=== PATIENT | male | born 1965 | race Caucasian/White ===

== ENCOUNTER 2017-10-06 06:25 | Day surgery (SDC) | payer OTHER ==
[~2017-10-06] VITALS: Ht 177.8 cm; Wt 70.3 kg
--- NOTE | 2017-10-06 08:13 | NUR ---
10/06/17 0813 Talita Navarrete 0807 PT ARRIVED IN PACU SLEEPY WITH NO C/O'S. ABD SOFT. 0812 OXYGEN DECREASED TO 1L NC WITH SATS 100%.
--- NOTE | 2017-10-07 08:49 | OR ---
[facility] [address], [place] [address] Signed DATE OF OPERATION: 10/06/2017 SURGEON: Shannan Yun MD PREOPERATIVE DIAGNOSES: 1. Colon screening. 2. Family history of colon cancer (aunt). POSTOPERATIVE DIAGNOSIS: Normal colon to cecum. PROCEDURE: Total colonoscopy to cecum. ANESTHESIA: Intravenous sedation, fentanyl 200 mcg and Versed 6 mg. INDICATION: This 52-year-old white man is a patient of Dr. Barreto. He sees also Dr. Pillai, a doctor of chiropractic. He is referred for screening colonoscopy. He understands the risks of bleeding, infection, and perforation. He does have a family history of colon cancer in an aunt who was , though not from colon cancer. He understands the risks of bleeding, infection, and perforation related to colonoscopy and wished to proceed. FINDINGS: The prep was excellent. Complete colonoscopy was undertaken to the cecum. There was no sign of polyp or diverticular formation, colitis, or cancer. DESCRIPTION OF PROCEDURE: The patient was brought to the operative room, placed in the lateral decubitus position and given intravenous sedation to the point of slurred speech and nystagmus. Digital rectal examination was normal. The Olympus video colonoscope was passed in the rectum and manipulated throughout the colon. Passage beyond the hepatic flexure required abdominal wall stabilization, but was accomplished and ultimately the scope passed to the cecum. He had an excellent prep. Irrigation was undertaken as needed at the cecum and the scope was carefully withdrawn from that point. Examination throughout showed no sign of polyp, diverticular formation, colitis, or cancer. Retroflex view was normal as well. The scope was Electronically Signed By: SHANNAN YUN MD 10/07/17 0849 PATIENT NAME: ARELI HUFFMAN OPERATIVE REPORT DATE OF : 67 REPORT #: [id number] PHYSICIAN: SHANNAN YUN MD PCP: SHAQ PILLAI DC REPORT IS CONFIDENTIAL AND NOT TO BE RELEASED WITHOUT AUTHORIZATION [facility] [address] [facility] [place], [place] [address] Signed removed. The patient was taken to the recovery room in good condition. CONCLUDING DIAGNOSIS: Normal colon to cecum. PLAN: Recommend repeat colonoscopy in 10 years or sooner if clinically indicated by bleeding, diarrhea or constipation problems. MD KELLEY Mcpherson/MODL /[id number] cc: KEEGAN Nunn MD Copies: SHAQ PILLAI DC, MALCOLM MD ~ Electronically Signed By: SHANNAN YUN MD 10/07/17 0849 PATIENT NAME: ARELI HUFFMAN OPERATIVE REPORT DATE OF : 67 REPORT #: [id number] PHYSICIAN: SHANNAN YUN MD PCP: SHAQ PILLAI DC REPORT IS CONFIDENTIAL AND NOT TO BE RELEASED WITHOUT AUTHORIZATION
== END 2017-10-06 08:40 | disposition home or self-care (01) ==
LOC: DS 06:25 → OPS 06:25 → DS 06:45 → OPS 06:45
PROVIDERS: Surgery
PROC: 0DJD8ZZ Inspection of Lower Intestinal Tract, Via Natural or Artificial Opening Endoscopic (ICD-10-PCS; principal; 2017-10-06 06:45)
DX: Z12.11 Encounter for screening for malignant neoplasm of colon (principal); R00.2 Palpitations; Z80.0 Family history of malignant neoplasm of digestive organs
CPT/HCPCS: 99153; G0500; J2250; J3010; J7120